=== PATIENT | female | born 1980 | race Asian ===

== ENCOUNTER 2019-07-02 09:42 | Emergency (ER) | payer SELFPAY ==
[~2019-07-02] VITALS: Ht 167.6 cm; Wt 65.8 kg
[2019-07-02 09:54] VITALS: BP 118/53; Ht 167.6 cm; Wt 65.8 kg
== END 2019-07-02 11:26 | disposition left against medical advice (07) ==
LOC: ED 09:42
DX: Z53.21 Procedure and treatment not carried out due to patient leaving prior to being seen by health care provider (principal)